=== PATIENT | female | born 2000 | race Caucasian/White ===

== ENCOUNTER 2021-01-10 01:52 | Inpatient (IN) | payer OTHER ==
[~2021-01-10] VITALS: Ht 157.5 cm; Wt 108.0 kg
--- NOTE | 2021-01-10 03:39 | NUR ---
SWABBED BOTH NARES FOR RAPID COVID TEST
--- NOTE | 2021-01-10 11:15 | PR ---
[facility] [address] [facility] [place], [place] [address] Signed Progress Notes IP Datetime Report Generated by CPN: 01/10/2021 11:15 PROGRESS NOTES: [id number] Impression: Normal Progression of Labor; Reassuring Heart Rate Procedures: Sterile Vag Exam Plan: Continue Present Management; Anticipate Vaginal Delivery Informed Consent Obtain: Vaginal Delivery VITAL SIGNS: [id number] Vital Signs: Reviewed; Within Normal Limits EXAM: [id number] Dilatation: 10.0 Effacement: 100 Station: 0 Contractions: q 2-3 per pt MEMBRANES: [id number] Comments: Pt seen and examined. Pt sleeping with epidural. Now complete and +1 station. Will start pushing. Reviewed anticipated course of labor/delivery. All questions answered. FETUS A: [id number] FHR Baseline: 120 Variability: Moderate 6-25bpm Accelerations: 15X15 Decelerations: None FHR Category: Category I Presentation: Vertex Comments on Fetus A: No evidence of metabolic acidosis FETUS B: [id number] Signing Physician: Jaden Zarate DO Copies: ~ *Electronically Signed* 01/10/21 1115 JADEN ZARATE DO PATIENT NAME: ELISEO STARK PROGRESS NOTE DATE OF : 99 PHYSICIAN: JADNE ZARATE DO RPT #: [id number] REPORT IS CONFIDENTIAL AND NOT TO BE RELEASED WITHOUT AUTHORIZATION
[2021-01-10] MEDS ORDERED: TYLENOL325 M1 PO (23:35)
[2021-01-10] MEDS ORDERED: PROAIR RESPICL90 MCG INH (23:37)
[2021-01-10] MEDS ORDERED: NEXIUM20 MG PO (23:37)
--- NOTE | 2021-01-12 11:09 | PR ---
[facility] [address] [facility] [place], [place] [address] Signed PP Progress Notes Datetime Report Generated by CPN: 01/12/2021 11:09 SUBJECTIVE: [id number] Pain: Within Normal Limits Nausea/Vomiting: Denies Flatus: Yes Bowel Movement: No Vital Signs: [id number] Vital Signs: Reviewed Cardiovascular: Normal Respiratory: Normal Abdomen/Uterus: Normal Lochia: Normal Vulva/Perineum: Not Done Breasts: Not Done CVA Tenderness: Normal Extremities: Normal Incision: Not Applicable Progress: Normal Exam Comments: Fundus firm U-2 nontender IMPRESSION/PLAN/PROCEDURES: [id number] Impression: Normal Progression Plan: Discharge Other Plans: Miconazole for suspected ringworm Progress Notes: Pt seen and examined. Doing well. Ambulating, voiding, and tolerating full diet. Pain and lochia minimal. well. Desires d/c home today. Reviewed d/c instructions in detail. Planning Nuvaring for pp contraception. Reviewed instructions in detail. F/U 2 wk for pp visit. Signing Physician: Jaden Zarate DO Copies: ~ *Electronically Signed* 01/12/21 8598 JADEN ZARATE DO PATIENT NAME: ELISEO STARK PROGRESS NOTE DATE OF : 99 PHYSICIAN: JADEN ZARATE DO RPT #: [id number] REPORT IS CONFIDENTIAL AND NOT TO BE RELEASED WITHOUT AUTHORIZATION
== END 2021-01-12 15:55 | disposition home or self-care (01) | DRG 806 ==
LOC: FBCO 01:52 → FBC 03:10
PROVIDERS: ADMIT Obstetrics & Gynecology; ATTEND Obstetrics & Gynecology
PROC: 10E0XZZ Delivery of Products of Conception, External Approach (ICD-10-PCS; principal; 2021-01-10)
PROC: 0KQM0ZZ Repair Perineum Muscle, Open Approach (ICD-10-PCS; 2021-01-10)
PROC: 0UQMXZZ Repair Vulva, External Approach (ICD-10-PCS; 2021-01-10)
PROC: 10907ZC Drainage of Amniotic Fluid, Therapeutic from Products of Conception, Via Natural or Artificial Opening (ICD-10-PCS; 2021-01-10)
PROC: 00HU33Z Insertion of Infusion Device into Spinal Canal, Percutaneous Approach (ICD-10-PCS; 2021-01-10)
PROC: 3E0R3BZ Introduction of Anesthetic Agent into Spinal Canal, Percutaneous Approach (ICD-10-PCS; 2021-01-10)
DX: O99.824 Streptococcus B carrier state complicating childbirth (principal); O98.82 Other maternal infectious and parasitic diseases complicating childbirth; Z37.0 Single live birth; B35.9 Dermatophytosis, unspecified; Z3A.39 39 weeks gestation of pregnancy; O99.324 Drug use complicating childbirth; F12.90 Cannabis use, unspecified, uncomplicated; O99.334 Smoking (tobacco) complicating childbirth; F17.210 Nicotine dependence, cigarettes, uncomplicated; Z20.822 Contact with and (suspected) exposure to COVID-19; O70.1 Second degree perineal laceration during delivery; O71.82 Other specified trauma to perineum and vulva; O99.214 Obesity complicating childbirth; E66.9 Obesity, unspecified; O99.52 Diseases of the respiratory system complicating childbirth; J45.909 Unspecified asthma, uncomplicated; Z79.899 Other long term (current) drug therapy; Z86.19 Personal history of other infectious and parasitic diseases
CPT/HCPCS: 01960; 36415; 85027; A9270; C9803; J2540; J2590; J2795; J3010; J7121; U0003